=== PATIENT | male | born 1965 | race Caucasian/White ===

== ENCOUNTER 2016-11-25 11:15 | Inpatient (IN) | payer OTHER ==
--- NOTE | ~2016-11-25 | DS ---
Unit #: [id number] #: [id number] Patient: FERNANDO CARLOS [id number] [facility] [address] [place] [address] [id number] I MR#: [id number] NAME: FERNANDO CARLOS ROOM: [facility] Age: 51 Sex: M Admission Date: 11/25/2016 : 1965 Discharge Date: 11/29/2016 Attending Physician: Andrea Ngo M.D. Primary Care Physician: Generic Doctor Not In System DISCHARGE SUMMARY REASON FOR ADMISSION Alcohol abuse. DIAGNOSTIC STUDIES LABORATORY RESULTS: Remarkable for chloride 99 and total bilirubin 2.1. HOSPITAL COURSE The patient was admitted to inpatient unit on 11/25/2016 and discharged on 11/29/2016. The patient was treated on the inpatient unit with psychotherapy, psychoeducation, detox protocol, and detox monitoring. The patient responded well with the above modalities of treatment. Subsequently, the patient was discharged with a plan to follow up in outpatient program. DISCHARGE MEDICATIONS Prozac 40 mg daily for depression and Neurontin 300 mg t.i.d. for anxiety and mood stabilization. DISCHARGE DIAGNOSES Psychiatric: Alcohol use disorder, moderate to severe, F10.20; mood disorder, not otherwise specified, F32.9; and anxiety disorder, not otherwise specified, F41.9. Secondary diagnosis: Deferred. Medical diagnoses: Hypertension, high cholesterol, and obesity. Stressors: Psychosocial stressors. DISCHARGE INSTRUCTIONS The patient to follow up in outpatient clinic as per social media manager. CONDITION ON DISCHARGE The patient was pleasant and cooperative. Denied any psychotic symptom or any suicidal ideation. PROGNOSIS Guarded. DIET AND ACTIVITY As tolerated. Dictated by... Unit #: [id number] #: [id number] Patient: FERNANDO CARLOS Ajith Nelson/ambrosio TD: 11/29/2016 20:56 JOB #: [id number] DISCHARGE SUMMARY Page 1 of 1 X Andrea Ngo MD X DISCHARGE SUMMARY
--- NOTE | ~2016-11-25 | PN ---
Unit #: [id number] #: [id number] Patient: FERNANDO JACOBSON [id number] [facility] [address] [place] [address] [id number] I MR#: [id number] NAME: FERNANDO JACOBSON ROOM: [facility] Age: 51 Sex: M Admission Date: 11/25/2016 : 1965 Attending Physician: Andrea Ngo M.D. Admitting Physician: Andrea Ngo M.D. Primary Care Physician: Generic Doctor Not In System [facility] PROGRESS NOTES DATE 11/28/2016 DISCUSSION Fernando Jacobson is a 51-year-old male seen on 11/28/2016. The patient interviewed, chart reviewed. Obtained information from nursing staff. The patient compliant and cooperative maintain safe behavior no aggressive behavior. Reports that he is still feeling anxious, nervous, making progress. Complete review of systems unremarkable. MENTAL STATUS EXAMINATION General appearance, the patient tall well-built. Attention span and concentration fair. Oriented to time, place and person. Mood and affect sad, dysphoric, anxious Speech regular rate. Thought process goal directed. The patient denied any thoughts of harming self or others. Recent and remote memory poor. Insight and judgement poor. DIAGNOSES Alcohol use disorder moderate. ASSESSMENT/PLAN Advise to continue with current medication and therapeutic protocol. If needed consider further adjustment of medication with a plan to consider discharge this week and followup in outpatient program. Dictated by... Ajith Nelson/sharda TD: 11/29/2016 21:56 JOB #: [id number] Unit #: [id number] #: [id number] Patient: FERNANDO JACOBSON PROGRESS NOTES Page 1 of 1 X Andrea Ngo MD PROGRESS NOTE
--- NOTE | ~2016-11-25 | CO ---
Unit #: [id number] #: [id number] Patient: FERNANDO CARLOS [id number] [place] [address] [id number] I MR#: [id number] NAME: FERNANDO CARLOS ROOM: [facility] Age: 51 Sex: M Admission Date: 11/25/2016 : 1965 Attending Physician: Andrea Ngo M.D. Primary Care Physician: Generic Doctor Not In System Requesting Physician: Andrea Ngo M.D. Consultation Date: 11/26/2016 CONSULTATION REPORT HISTORY OF PRESENT ILLNESS Fernando is a 51-year-old male who has a history of high blood pressure. He reports in the past he has been treated with meds but he does not take any medications regularly currently. He does not have any headache or chest pain. Blood pressures since admission have been 152/96, 137/90, 125/73 and 145/97. He does have a record of an office visit where he was being prescribed triamterene/hydrochlorothiazide one p.o. daily and lisinopril 10 mg p.o. daily but he reports he has not been taking these medications. He has no complaints. PHYSICAL EXAM CARDIAC: Regular rate and rhythm. No murmur, gallop or rub. RESPIRATORY: Clear to auscultation bilaterally. ASSESSMENT AND PLAN Hypertension. The patient has some blood pressures that are normal and some that are elevated. We will begin clonidine 0.1 mg p.o. q 12 hours p.r.n. for blood pressures greater than 140/90. The patient will follow up with primary care provider. Dictated by... Rosmery ArdonPMichelleRJose for Ca TD: 11/28/2016 00:46 JOB #: [id number] CONSULTATION REPORT Page 1 of 1 X RENETTA JUSTICE APRN X CONSULTATION REPORT
--- NOTE | ~2016-11-25 | PN ---
Unit #: [id number] #: [id number] Patient: FERNANDO JACOBSON [id number] [facility] [address] [place] [address] [id number] I MR#: [id number] NAME: FERNANDO JACOBSON ROOM: [facility] Age: 51 Sex: M Admission Date: 11/25/2016 : 1965 Attending Physician: Andrea Ngo M.D. Admitting Physician: Andrea Ngo M.D. Primary Care Physician: Generic Doctor Not In System [facility] PROGRESS NOTES DATE OF SERVICE: 11/26/2016 DISCUSSION Fernando Jacobson is a 51-year-old male, seen on 11/26/2016. The patient interviewed, chart reviewed, and obtained information from nursing staff. The patient was compliant and cooperative, still anxious, nervous, withdrawn, isolative. REVIEW OF SYSTEMS Complete review of systems unremarkable. MENTAL STATUS EXAMINATION General appearance, the patient dressed casually. Attention span and concentration, fair. Oriented in place and person. Mood and affect, sad and dysphoric. Speech, monotone. Thought process, concrete. The patient denied any thoughts of harming self or others. Recent and remote memory, poor. Insight and judgment, poor. DIAGNOSES Alcohol use disorder, moderate; mood disorder, not otherwise specified. ASSESSMENT AND PLAN Advised to continue with current medication and therapeutic protocol. If needed, consider further adjustment of medication. Dictated by... Ajith Nelson/ambrosio TD: 11/27/2016 23:13 JOB #: [id number] Unit #: [id number] #: [id number] Patient: FERNANDO JACOBSON PROGRESS NOTES Page 1 of 1 X Andrea Ngo MD PROGRESS NOTE
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
--- NOTE | ~2016-11-25 | PN ---
Unit #: [id number] #: [id number] Patient: FERNANDO JACOBSON [id number] [facility] [address] [place] [address] [id number] I MR#: [id number] NAME: FERNANDO JACOBSON ROOM: [facility] Age: 51 Sex: M Admission Date: 11/25/2016 : 1965 Attending Physician: Andrea Ngo M.D. Admitting Physician: Andrea Ngo M.D. Primary Care Physician: Generic Doctor Not In System [facility] PROGRESS NOTES DATE 11/27/2016 DISCUSSION Fernando Jacobson is a 50-year-old male seen on 11/27/2016. The patient interviewed, chart reviewed. Obtained information from nursing staff. The patient tolerating medication fairly well. Maintain safe behavior, no withdrawal symptoms at this time. Complete review of systems unremarkable. MENTAL STATUS EXAMINATION General appearance, the patient tall well-built. Attention span and concentration fair. Oriented to time, place and person. Mood and affect labile. Speech monotone. Thought process concrete. The patient denied any thoughts of harming self or others but guarded. Recent and remote memory poor. Insight and judgement poor. DIAGNOSES Alcohol use disorder severe ASSESSMENT/PLAN Advise to continue with current medication and therapeutic protocol. If needed consider further adjustment of medication. Dictated by... Ajith Nelson/sharda TD: 11/29/2016 00:37 JOB #: [id number] Unit #: [id number] #: [id number] Patient: FERNANDO JACOBSON PROGRESS NOTES Page 1 of 1 X Andrea Ngo MD PROGRESS NOTE
--- NOTE | ~2016-11-25 | HP ---
Unit #: [id number] #: [id number] Patient: FERNANDO CARLOS [id number] [facility] [address] [place] [address] [id number] I MR#: [id number] NAME: FERNANDO CARLOS ROOM: [facility] Age: 51 Sex: M Admission Date: 11/25/2016 : 1965 Attending Physician: Andrea Ngo M.D. Admitting Physician: Andrea Ngo M.D. Primary Care Physician: Generic Doctor Not In System HISTORY AND PHYSICAL HISTORY OF PRESENT ILLNESS Fernando is a 51-year-old male admitted on 11/25/2016 to [facility] for detox from alcohol. PAST MEDICAL HISTORY 1. Obesity. 2. Hypertension. 3. Hyperlipidemia. 4. GERD. PAST SURGICAL HISTORY 1. Surgical repair of jaw fracture. 2. Laminectomy in 2006. ALLERGIES No known drug allergies. SOCIAL HISTORY No tobacco or illegal drug use. Does report a fifth of alcohol use daily. He is currently and living alone. FAMILY HISTORY Noncontributory. REVIEW OF SYSTEMS CONSTITUTIONAL: No fever or chills. HEENT: Denies any sore throat, ear pain or runny nose. CARDIOVASCULAR: Denies chest pain, irregular heart rhythm or palpitations. CHEST: Denies shortness of breath or cough. No hemoptysis. GASTROINTESTINAL: Denies nausea, vomiting, diarrhea or chronic constipation. ENDOCRINE: Denies history of increased thirst or urination. No recent significant weight loss or gain. GENITOURINARY: Denies dysuria, frequency, or hematuria. SKIN: Denies any rashes. HEMATOLOGIC: Denies history of increased bleeding or bruising. MUSCULOSKELETAL: Denies any hot, swollen joints. No generalized muscle pain. NEUROLOGIC: Denies problems with vision or speech. No frequent, severe headaches. No numbness, tingling or weakness in any extremities. Denies loss of bladder or bowel control. CURRENT MEDICATIONS Unit #: [id number] #: [id number] Patient: FERNANDO CARLOS 1. Atorvastatin. 2. Fluoxetine. 3. Iron. 4. Protonix. 5. Gabapentin. PHYSICAL EXAMINATION GENERAL: Alert, oriented, in no acute distress. VITAL SIGNS: Blood pressure 152/96, heart rate 77, respirations 18, temperature 99.1. HEIGHT: 6 feet 1. WEIGHT: 250 pounds. SKIN: Warm and dry without rash or lesion. HEENT: Normocephalic. TMs not viewed. Oral and nasal passages clear. Conjunctivae clear. PERRLA. EOMs intact. NECK: Supple without lymphadenopathy or thyromegaly. HEART: Regular rate and rhythm without murmur. LUNGS: Clear. ABDOMEN: Soft, nontender, without masses or hepatosplenomegaly. : Not done. EXTREMITIES: No evidence of cyanosis, clubbing or edema. Moves all without focal deficit. NEUROLOGICAL: Grossly within normal limits. Cranial Nerves: II: Visual mccrary are intact. III, IV AND : Extraocular movements are intact. Pupils are equal, round and reactive to light. V: Facial sensation is grossly normal. VII: Facial movements and expression are normal. VIII: Auditory acuity grossly intact. IX, X: Uvula is midline. Phonation is normal. XI: Patient shrugs shoulders and turns head normally. XII: Tongue protrudes in the midline. Sensory and Motor Function: Sensory and motor sensation is grossly normal. Motor: moves all extremities well. Coordination: Gait is normal. Deep Tendon Reflexes: Intact. IMPRESSION Psychiatric admission. RECOMMENDATIONS PSYCHIATRIC: Per psychiatrist. MEDICAL: No contraindications to participate in facility's activities. MEDICAL PROGNOSIS Good. MEDICAL CONDITION Stable. Dictated by... Mckenzie Ardon/brandi TD: 11/26/2016 15:43 JOB #: [id number] Unit #: [id number] #: [id number] Patient: FERNANDO CARLOS HISTORY AND PHYSICAL Page 1 of 1 X RENETTA JUSTICE APRN HISTORY AND PHYSICAL
[2016-11-26 12:13] LABS: URINE APPEARANCE CLEAR; URINE BILIRUBIN NEG (NEG); URINE BLOOD NEG (NEG); URINE COLOR DK YELLOW; URINE GLUCOSE NEG (NEG); URINE KETONE NEG (NEG); URINE LEUKOCYTE ESTERASE NEG (NEG); URINE NITRATE NEG (NEG); URINE PH 6.5 (5-8); URINE PROTEIN NEG (NEG); URINE SPECIFIC GRAVITY 1.013 (1.003-1.035); URINE UROBILINOGEN 0.2 MG/DL (NEG)
[2016-11-26 12:29] LABS: BASOPHIL% 0.6 % (0-2.5); EOSINOPHIL# 0.1 X10e3 (0-0.7); EOSINOPHIL% 1.8 % (0.0-7.0); HEMATOCRIT 39.7 % (38.0-50.0); HEMOGLOBIN 12.6 gm/dL (13.0-16.0); LYMPHOCYTE# 2.4 X10e3 (1.0-3.5); MEAN CELL VOLUME 88.5 FL (83-96); MEAN CORPUSCULAR HEMOGLOBIN 28.1 PG (28-34); MEAN CORPUSCULAR HGB CONC 31.8 g/dL (30-36); MEAN PLATELET VOLUME 9.8 FL (6.5-11.5); MONOCYTE# 0.6 X10e3 (0-1.0); MONOCYTE% 8.5 % (3.0-12.0); NEUTROPHIL# 3.8 X10e3 (1.5-7.1); NEUTROPHIL% 55.1 % (40-75); PLATELET COUNT 161 X10e3 (140-420); RED BLOOD COUNT 4.49 X10e (3.90-5.60); RED CELL DISTRIBUTION WIDTH 14.4 % (11.0-15.5); WHITE BLOOD COUNT 6.9 X10e3 (4.0-10.5)
[2016-11-26 12:31] LABS: AMPHETAMINE NEG (NEG); BARBITURATES NEG (NEG); BENZODIAZEPINES NEG (NEG); COCAINE NEG (NEG); MARIJUANA NEG (NEG); OPIATES NEG (NEG); TRICYCLIC ANTIDEPRESSANTS NEG (NEG); U METHADONE NEG (NEG)
[2016-11-26 12:39] LABS: DIFF IND NO
[2016-11-26 13:06] LABS: BILIRUBIN,TOTAL 2.1 mg/dL (0.2-2.0); BUN/CREATININE RATIO 16.66; CALCIUM SERUM 8.9 mg/dL (8.4-10.2); CREATININE SERUM 0.9 mg/dL (0.6-1.4); GLOM FILT RATE Estimated 97.2 mL/min (>60); PROTEIN TOTAL SERUM 6.4 g/dL (6.0-8.3)
== END 2016-11-29 09:15 | disposition hospice, home (50) | DRG 897 ==
LOC: P1E 14:41
PROVIDERS: Psychiatry & Neurology Psychiatry
PROC: HZ2ZZZZ Detoxification Services for Substance Abuse Treatment (ICD-10-PCS; principal; 2016-11-25)
DX: F10.20 Alcohol dependence, uncomplicated (principal); F39 Unspecified mood [affective] disorder; I10 Essential (primary) hypertension; F32.9 Major depressive disorder, single episode, unspecified; E78.00 Pure hypercholesterolemia, unspecified; E66.9 Obesity, unspecified; K21.9 Gastro-esophageal reflux disease without esophagitis; E78.5 Hyperlipidemia, unspecified
CPT/HCPCS: 80053; 80307; 81003; 85025; 86592